=== PATIENT | female | born 1995 | race Caucasian/White ===

== ENCOUNTER 2016-11-16 23:06 | Emergency (ER) | payer BC ==
[2016-11-16 23:32] VITALS: BP 113/62
[2016-11-16] MEDS ORDERED: Acetaminophen TAB* 325 MG PO ONE (23:40)
[2016-11-16] MEDS ORDERED: Ibuprofen TAB* 800 MG PO ONE (23:40)
[2016-11-16] MEDS ORDERED: predniSONE TAB* 20 MG PO ONE (23:40)
--- NOTE | 2016-11-17 01:42 | ED ---
Rudy White Alok, scribed for Sonia More MD on 11/16/16 at 2340 . HPI Febrile Illness - HPI Summary HPI Summary: 21F presents to the ED with a fever of 102F accompanied by weakness, dizziness, sore throat, and a slight MEJIA. Pt states her symptoms began yesterday and have worsened today. Pt also notes dysphagia but is able to swallow her saliva. Pt denies cough, rhinorrhea, or vomit. Pt denies h/o mono. Pt is allergic to penicillin and amoxicillin. - History of Current Complaint Hx Obtained From: Patient Timing: Constant Temperature: 102 F Initial Severity: Moderate Current Severity: Moderate Aggravating Factors: Nothing Alleviating Factors: Nothing Associated Signs and Symptoms: Dizziness, Headache, Sore Throat, Weakness - Allergy/Home Medications Allergies/Adverse Reactions: Allergies Allergy/AdvReac Type Severity Reaction Status Date / Time Penicillins Allergy Rash Verified 03/28/13 07:12 PMH/Surg Hx/FS Hx/Imm Hx Endocrine/Hematology History: Denies: Hx Diabetes Cardiovascular History: Denies: Hx Hypertension - Immunization History Date of Tetanus Vaccine: UTD Date of Influenza Vaccine: 2012 - Family History Known Family History: Negative: Diabetes - Social History Occupation: Student Alcohol Use: None Hx Substance Use: No Substance Use Type: Reports: None Hx Tobacco Use: No Smoking Status (MU): Never Smoked Tobacco Review of Systems Positive: Fever Positive: Sore Throat. Negative: Nasal Discharge Negative: Cough Negative: Vomiting Neurological: Other - Dizziness Positive: Headache, Weakness All Other Systems Reviewed And Are Negative: Yes Physical Exam Triage Information Reviewed: Yes Vital Signs On Initial Exam: Initial Vital Signs Temp 102 F 11/16/16 23:31 Pulse 109 11/16/16 23:31 Resp 16 11/16/16 23:31 BP 113/62 11/16/16 23:31 Pulse Ox 100 11/16/16 23:31 Vital Signs Reviewed: Yes Appearance: Positive: Well-Appearing, No Pain Distress Skin: Positive: Warm, Skin Color Reflects Adequate Perfusion, Dry Eyes: Positive: EOMI, BENITA ENT: Positive: Pharyngeal erythema, TMs normal, Tonsillar swelling. Negative: Tonsillar exudate, Trismus, Muffled/hoarse voice Neck: Positive: Supple, Nontender, No Lymphadenopathy Respiratory/Lung Sounds: Positive: Clear to Auscultation, Breath Sounds Present. Negative: Rales, Rhonchi, Wheezes Cardiovascular: Positive: RRR, Other - no gallop. Negative: Murmur, Rub Abdomen Description: Positive: Nontender, Soft, Other: - no rebound. Negative: Distended, Guarding Bowel Sounds: Positive: Present Musculoskeletal: Positive: Strength/ROM Intact. Negative: Edema Left, Edema Right Neurological: Positive: Sensory/Motor Intact, Alert, Oriented to Person Place, Time, CN Intact II-III Psychiatric: Positive: Affect/Mood Appropriate Diagnostics - Vital Signs Vital Signs Temp Pulse Resp BP Pulse Ox 11/16/16 23:32 102 F 109 16 113/62 100 11/16/16 23:31 102 F 109 16 113/62 100 - Laboratory Lab Results: Lab Results 11/16/16 Range/Units 22:56 Group A Strep Rapid Negative (Negative) Lab Statement: Any lab studies that have been ordered have been reviewed, and results considered in the medical decision making process. Course/Dx - Course Course Of Treatment: 21 yo female with sore throat, with erythematous tonsils no exudate and temp of 102, non toxic appearing, no headache no meningismus no petechiae (except from a hickey on the left side of her neck). Her strep is neg ,she preferred not to have her blood drawn and so she was given one dose of prednisone, and tylenol and motrin which relieved much of her discomfort. she will f/u at [facility] if her symptoms continue - Diagnoses Provider Diagnoses: Pharyngitis Discharge - Discharge Plan Condition: Stable Disposition: HOME The documentation as recorded by the Rudy jerome Alok accurately reflects the service I personally performed and the decisions made by me, Sonia More MD.
== END 2016-11-17 01:47 | disposition home or self-care (01) ==
LOC: ED 23:06
DX: J02.9 Acute pharyngitis, unspecified (principal); R42 Dizziness and giddiness; R51 Headache; R53.1 Weakness
CPT/HCPCS: 87651; 99283; A9270-GY; J7512